=== PATIENT | male | born 1930 | race Caucasian/White ===

== ENCOUNTER 2018-10-29 17:51 | Emergency (ER) | payer MEDICARE ==
[~2018-10-29] VITALS: Ht 180.3 cm; Wt 73.0 kg
[~2018-10-29 17:51] MED LIST: ASCO500T8 PO; HYDR-3237 PO; LOVA40TA2 PO; LUTE40CA PO; RIVA20TA PO; SAW160CA4 PO
--- NOTE | 2018-10-29 18:22 | NUR ---
CONTACT WITH PT, 88 YR OLD MALE HERE WITH MULTIPLE COMPLAINTS, DIZZY, SOB, LOST TASTE, COUGH, "JUST DONT FEEL GOOD" PT PLACED ON MONITOR, PACED RHYTHM. AUTO BP AND PULSE OX IN PLACE. DR MISHRA AT BEDSIDE TO KENDRA PT.
[2018-10-29] MEDS ORDERED: METF500T17 PO (18:32)
[2018-10-29] MEDS ORDERED: OXYB5TAB PO (18:32)
[2018-10-29] MEDS ORDERED: TAMS-11 PO (18:32)
[2018-10-29] MEDS ORDERED: MV-M1TAB34 PO (18:33)
[2018-10-29] MEDS ORDERED: LACT1CAP11 PO (18:33)
[2018-10-29] MEDS ORDERED: ASPI-496 PO (18:33)
[2018-10-29] MEDS ORDERED: SITA100T PO (18:33)
[2018-10-29 18:44] LABS: BASOPHILS # (AUTO) 0.02 x10^3/uL (0-0.1); BASOPHILS % (AUTO) 0 % (0-1); EOSINOPHILS # (AUTO) 0.04 x10^3/uL (0-0.4); EOSINOPHILS % (AUTO) 1 % (1-7); LYMPHOCYTES # (AUTO) 1.04 x10^3/uL (1-3.4); LYMPHOCYTES % (AUTO) 16 % (22-44); MD NO; MEAN CORPUSCULAR HEMOGLOBIN 31.9 pg (27.5-34.5); MEAN CORPUSCULAR HGB CONC 33.4 g/dL (33.2-36.2); MEAN CORPUSCULAR VOLUME 95.5 fL (81-97); MEAN PLATELET VOLUME 8.7 fL (7.4-10.4); MONOCYTES # (AUTO) 0.62 x10^3/uL (0.2-0.8); MONOCYTES % (AUTO) 10 % (2-9); NEUTROPHILS % (AUTO) 74 % (42-75); PLATELET COUNT 228 x10^3/uL (130-400); RED BLOOD COUNT 4.33 x10^6/uL (4.38-5.82); RED CELL DISTRIBUTION WIDTH 14.1 % (9.4-14.8)
--- NOTE | 2018-10-29 18:48 | NUR ---
REPORT TO KAREL DHALIWAL
[2018-10-29 18:51] LABS: ALANINE AMINOTRANSFERASE 28 U/L (12-78); ALBUMIN 3.2 g/dL (3.4-5.0); ANION GAP 7 mmol/L (5-15); CHLORIDE 106 mmol/L (98-107); CREATININE 1.04 mg/dL (0.7-1.3)
[2018-10-29 18:56] LABS: ALKALINE PHOSPHATASE 94 U/L (45-117); BILIRUBIN,TOTAL 0.5 mg/dL (0.2-1.0); TOTAL PROTEIN 6.9 g/dL (6.4-8.2); TROPONIN I < 0.015 ng/mL (0.000-0.045)
[2018-10-29 19:24] LABS: MICROSCOPIC NOT IND
[2018-10-29 19:31] LABS: CULTURE INDICATED? NO
[2018-10-29 19:46] VITALS: BP 127/85
== END 2018-10-29 19:48 | disposition home or self-care (01) ==
LOC: ED 19:09
DX: R05 Cough (principal); R42 Dizziness and giddiness; E78.00 Pure hypercholesterolemia, unspecified; E11.9 Type 2 diabetes mellitus without complications; Z95.0 Presence of cardiac pacemaker
CPT/HCPCS: 36415; 71045; 80053; 81003; 83880; 84443; 84484; 85025; 93005; 99284

== ENCOUNTER → 2020-04-30 | Outpatient (CLI) | payer MEDICARE ==
[~2020-04-30] MED LIST changes: +ASPI-496 PO; +LACT1CAP11 PO; +METF500T17 PO; +MV-M1TAB34 PO; +OXYB-39 PO; +SITA100T PO; +TAMS-11 PO
== END | disposition home or self-care (01) ==
LOC: CVU 08:36
PROVIDERS: ATTEND Internal Medicine Cardiovascular Disease
DX: I65.23 Occlusion and stenosis of bilateral carotid arteries (principal); Z95.0 Presence of cardiac pacemaker
CPT/HCPCS: 93880